=== PATIENT | female | born 1955 | race Caucasian/White ===

== ENCOUNTER → 2018-01-01 | Outpatient (CLI) | payer BC, OTHER ==
[~2018-01-01] MED LIST: ASPI325T17 PO; CALC1CAP8 PO; CALICUM; DRON400T PO; LEVO100C2 PO; LEVO100T5 PO; LISI-167 PO; METO50TA82 PO; OMEG1CAP23 PO; OMEG500C; OXYC1TAB7 PO
== END | disposition home or self-care (01) ==
LOC: CFH 10:18
PROVIDERS: ATTEND Internal Medicine Cardiovascular Disease
DX: I08.3 Combined rheumatic disorders of mitral, aortic and tricuspid valves (principal); I48.0 Paroxysmal atrial fibrillation; I10 Essential (primary) hypertension
CPT/HCPCS: C8929

== ENCOUNTER 2020-04-07 10:05 | Inpatient (IN) | payer BC, OTHER ==
[~2020-04-07] VITALS: Ht 162.6 cm; Wt 108.0 kg
--- NOTE | 2020-04-07 10:13 | NUR ---
triage note: EKG done in triage
[2020-04-07 10:51] LABS: BASOPHILS # (AUTO) 0.03 x10^3/uL (0-0.1); BASOPHILS % (AUTO) 1 % (0-1); EOSINOPHILS # (AUTO) 0.17 x10^3/uL (0-0.4); EOSINOPHILS % (AUTO) 3 % (1-7); LYMPHOCYTES # (AUTO) 1.15 x10^3/uL (1-3.4); LYMPHOCYTES % (AUTO) 19 % (22-44); MD NO; MEAN CORPUSCULAR HEMOGLOBIN 30.2 pg (27.0-34.8); MEAN CORPUSCULAR HGB CONC 33.3 g/dL (32.4-35.8); MEAN CORPUSCULAR VOLUME 90.5 fL (80-100); MEAN PLATELET VOLUME 9.2 fL (7.4-10.4); MONOCYTES # (AUTO) 0.62 x10^3/uL (0.2-0.8); MONOCYTES % (AUTO) 10 % (2-9); NEUTROPHILS # (AUTO) 3.96 x10^3/uL (1.8-6.8); NEUTROPHILS % (AUTO) 67 % (42-75); PLATELET COUNT 214 x10^3/uL (130-400); RED BLOOD COUNT 5.35 x10^6/uL (3.82-5.3); RED CELL DISTRIBUTION WIDTH 15.5 % (9.6-15.2)
[2020-04-07 11:02] LABS: INTERNATIONAL NORMALIZED RATIO 1.07 (0.93-1.1); PROTHROMBIN TIME 11.4 Seconds (9.6-11.5)
[2020-04-07 11:04] LABS: ALANINE AMINOTRANSFERASE 57 U/L (12-78); ALBUMIN 3.4 g/dL (3.4-5.0); ANION GAP 9 mmol/L (5-15); CALCIUM 8.7 mg/dL (8.5-10.1); CHLORIDE 109 mmol/L (98-107); CREATININE 0.97 mg/dL (0.55-1.02)
[2020-04-07 11:09] LABS: ALKALINE PHOSPHATASE 87 U/L (45-117); TOTAL PROTEIN 7.5 g/dL (6.4-8.2); TROPONIN I < 0.015 ng/mL (0.000-0.045)
[2020-04-07] MEDS ORDERED: CEFTRIAXONE PMX 1GM/50ML 50 ML ONE (11:29)
[2020-04-07] MEDS ORDERED: CEFTRIAXONE PMX 1GM/50ML 50 ML IVPB ONE (11:30)
--- NOTE | 2020-04-07 11:43 | NUR ---
IV ESTABLISHED AND IV ABX STARTED AFTER BLOOD CULTURES DRAWN. MED REC UPDATED
[2020-04-07] MEDS ORDERED: APIX5TAB PO (11:46)
--- NOTE | 2020-04-07 12:27 | NUR ---
CHANGE OF ADMIT STATUS TO COVID RULE OUT FLOOR
[2020-04-07] MEDS ORDERED: ACETAMINOPHEN 325 MG TABLET PO PRN (12:30)
[2020-04-07] MEDS ORDERED: GUAIFENESIN/DM 200-20MG, 10ML UDC PO PRN (12:30)
[2020-04-07] MEDS ORDERED: MELATONIN 5 MG TABLET PO PRN (12:30)
[2020-04-07] MEDS ORDERED: ONDANSETRON 2MG/ML, 2ML IVPush PRN (12:30)
[2020-04-07] MEDS ORDERED: DILTIAZEM 5 MG/ML, 5ML IVPush PRN (13:00)
[2020-04-07 13:05] LABS: TROPONIN I < 0.015 ng/mL (0.000-0.045)
--- NOTE | 2020-04-07 13:13 | NUR ---
REPORT TO FELICIANO ROSARIO
--- NOTE | 2020-04-07 13:13 | NUR ---
COVID SWAB DONE AND WALKED TO LAB
--- NOTE | 2020-04-07 14:06 | NUR ---
REPORT FROM MARLENE DANIELLE
[2020-04-07 14:11] VITALS: BP 124/58
[2020-04-07] MEDS: SODIUM CHLORIDE 0.9% 1,000 ML IV SCH ×2 (14:29→21:34)
[2020-04-07 18:56] LABS: TROPONIN I < 0.015 ng/mL (0.000-0.045)
[2020-04-07 19:38] VITALS: BP 108/53
[2020-04-07] MEDS: METOPROLOL TARTRATE 50 MG TAB PO SCH (21:33)
[2020-04-07] MEDS: DOXYCYCLINE 100MG TABLET PO SCH (21:33)
[2020-04-07] MEDS: APIXABAN 5 MG TABLET PO SCH (21:33)
[2020-04-07] MEDS: DRONEDARONE 400MG TABLET PO SCH (21:34)
[2020-04-07] MEDS: CEFTRIAXONE PMX 1GM/50ML 50 ML IV SCH (23:07)
[2020-04-08 00:01] VITALS: BP 115/62
[2020-04-08 05:11] VITALS: BP 108/62
[2020-04-08 05:43] LABS: BASOPHILS # (AUTO) 0.13 x10^3/uL (0-0.1); BASOPHILS % (AUTO) 2 % (0-1); EOSINOPHILS # (AUTO) 0.17 x10^3/uL (0-0.4); EOSINOPHILS % (AUTO) 3 % (1-7); LYMPHOCYTES # (AUTO) 1.44 x10^3/uL (1-3.4); LYMPHOCYTES % (AUTO) 23 % (22-44); MD NO; MEAN CORPUSCULAR VOLUME 91.1 fL (80-100); MONOCYTES # (AUTO) 0.56 x10^3/uL (0.2-0.8); MONOCYTES % (AUTO) 9 % (2-9); NEUTROPHILS # (AUTO) 3.94 x10^3/uL (1.8-6.8); NEUTROPHILS % (AUTO) 63 % (42-75); PLATELET COUNT 189 x10^3/uL (130-400); RED BLOOD COUNT 4.72 x10^6/uL (3.82-5.3); RED CELL DISTRIBUTION WIDTH 15.8 % (9.6-15.2)
[2020-04-08] MEDS: SODIUM CHLORIDE 0.9% 1,000 ML IV SCH (05:44)
[2020-04-08 05:56] LABS: ALBUMIN 2.9 g/dL (3.4-5.0); ANION GAP 8 mmol/L (5-15); CALCIUM 8.1 mg/dL (8.5-10.1); CHLORIDE 112 mmol/L (98-107)
[2020-04-08 06:08] LABS: ALANINE AMINOTRANSFERASE 48 U/L (12-78); ALKALINE PHOSPHATASE 72 U/L (45-117); BILIRUBIN,TOTAL 0.7 mg/dL (0.2-1.0); CHOL/HDL RATIO 1.9; CHOLESTEROL, TOTAL 75 mg/dL (140-239); HDL CHOL % 52 % (28-40); HDL CHOLESTEROL (DIRECT) 39 mg/dL (40-60); LDL CHOLESTEROL,CALCULATED 26 mg/dL (54-169); LDL/HDL RATIO 0.7 (0.5-3.0); TOTAL PROTEIN 6.6 g/dL (6.4-8.2); TRIGLYCERIDES 48 mg/dL (50-200); VLDL CHOLESTEROL 10 mg/dL (0-25)
[2020-04-08 08:00] VITALS: BP 123/78
[2020-04-08] MEDS: DOXYCYCLINE 100MG TABLET PO SCH ×2 (08:49→21:02)
[2020-04-08] MEDS: LEVOTHYROXINE 100 MCG TABLET PO SCH (08:49)
[2020-04-08] MEDS: DRONEDARONE 400MG TABLET PO SCH ×2 (08:49→21:02)
[2020-04-08] MEDS: LISINOPRIL 10 MG TABLET PO SCH (08:49)
[2020-04-08] MEDS: METOPROLOL TARTRATE 50 MG TAB PO SCH ×2 (08:49→21:03)
[2020-04-08] MEDS: APIXABAN 5 MG TABLET PO SCH ×2 (09:00→21:13)
[2020-04-08 11:55] VITALS: BP 133/66
[2020-04-08 21:14] VITALS: BP 136/69
[2020-04-08] MEDS: CEFTRIAXONE PMX 1GM/50ML 50 ML IV SCH (23:29)
[2020-04-09 02:18] VITALS: BP 117/66
[2020-04-09 08:44] VITALS: BP 122/49
[2020-04-09] MEDS: METOPROLOL TARTRATE 50 MG TAB PO SCH (09:55)
[2020-04-09] MEDS: DOXYCYCLINE 100MG TABLET PO SCH (09:56)
[2020-04-09] MEDS: DRONEDARONE 400MG TABLET PO SCH (09:56)
[2020-04-09] MEDS: LEVOTHYROXINE 100 MCG TABLET PO SCH (09:56)
[2020-04-09] MEDS: APIXABAN 5 MG TABLET PO SCH (09:56)
[2020-04-09] MEDS: LISINOPRIL 10 MG TABLET PO SCH (09:56)
[2020-04-09] MEDS ORDERED: DOXY100T PO (09:57)
[2020-04-09] MEDS ORDERED: CEFD300C37 PO (09:57)
[2020-04-09 12:08] VITALS: BP 125/54
== END 2020-04-09 15:00 | disposition home or self-care (01) | DRG 194 ==
LOC: ED 10:53 → EDIP 11:02 → 4NE 14:00 → ICU 04-08 05:00
PROVIDERS: ADMIT Internal Medicine; ATTEND Internal Medicine
DX: J15.9 Unspecified bacterial pneumonia (principal); D68.69 Other thrombophilia; E03.9 Hypothyroidism, unspecified; I10 Essential (primary) hypertension; I48.91 Unspecified atrial fibrillation
CPT/HCPCS: 36415; 71045; 80053; 80061; 83605; 84443; 84484; 85025; 85610; 87040; 87081; 93005; 93308; 93321; 93325; 96374; G0378; J0696; J7030; U0001-CS

== ENCOUNTER → 2020-05-15 | Outpatient (CLI) | payer BC, OTHER ==
[~2020-05-15] MED LIST changes: +APIX5TAB PO; +CEFD300C37 PO; +DOXY100T PO
== END | disposition home or self-care (01) ==
LOC: CFH 09:42
PROVIDERS: ATTEND Family Medicine
DX: I51.7 Cardiomegaly (principal); J18.9 Pneumonia, unspecified organism
CPT/HCPCS: 71046

== ENCOUNTER 2020-06-12 10:14 | Outpatient (CLI) | payer BC, OTHER, MEDICARE | END 2020-06-12 23:59 | disposition home or self-care (01) | LOC: CFH 10:14 | PROVIDERS: ATTEND Internal Medicine Cardiovascular Disease | DX: I11.9 Hypertensive heart disease without heart failure (principal); I48.0 Paroxysmal atrial fibrillation | CPT/HCPCS: 93306 ==

== ENCOUNTER → 2020-06-19 | Outpatient (CLI) | payer BC, OTHER, MEDICARE ==
[2020-06-19 12:48] LABS: BASOPHILS # (AUTO) 0.03 x10^3/uL (0-0.1); BASOPHILS % (AUTO) 1 % (0-1); EOSINOPHILS # (AUTO) 0.25 x10^3/uL (0-0.4); EOSINOPHILS % (AUTO) 5 % (1-7); LYMPHOCYTES # (AUTO) 1.12 x10^3/uL (1-3.4); LYMPHOCYTES % (AUTO) 23 % (22-44); MD NO; MEAN CORPUSCULAR HEMOGLOBIN 29.7 pg (27.0-34.8); MEAN CORPUSCULAR HGB CONC 32.8 g/dL (32.4-35.8); MEAN CORPUSCULAR VOLUME 90.6 fL (80-100); MEAN PLATELET VOLUME 8.7 fL (7.4-10.4); MONOCYTES # (AUTO) 0.37 x10^3/uL (0.2-0.8); MONOCYTES % (AUTO) 8 % (2-9); NEUTROPHILS # (AUTO) 3.04 x10^3/uL (1.8-6.8); NEUTROPHILS % (AUTO) 63 % (42-75); PLATELET COUNT 192 x10^3/uL (130-400); RED BLOOD COUNT 4.79 x10^6/uL (3.82-5.3); RED CELL DISTRIBUTION WIDTH 15.5 % (9.6-15.2)
[2020-06-19 13:14] LABS: CHLORIDE 111 mmol/L (98-107)
[2020-06-19 13:37] LABS: ALANINE AMINOTRANSFERASE 57 U/L (12-78); ALBUMIN 3.5 g/dL (3.4-5.0); ALKALINE PHOSPHATASE 81 U/L (45-117); ANION GAP 5 mmol/L (5-15); BILIRUBIN,TOTAL 0.9 mg/dL (0.2-1.0); CALCIUM 9.1 mg/dL (8.5-10.1); CHOL/HDL RATIO 1.7; CHOLESTEROL, TOTAL 88 mg/dL (140-239); CREATININE 0.92 mg/dL (0.55-1.02); HDL CHOL % 60 % (28-40); HDL CHOLESTEROL (DIRECT) 53 mg/dL (40-60); LDL CHOLESTEROL,CALCULATED 28 mg/dL (54-169); LDL/HDL RATIO 0.5 (0.5-3.0); T4 (THYROXINE) 14.1 mcg/dL (4.8-13.9); TOTAL PROTEIN 7.3 g/dL (6.4-8.2); TRIGLYCERIDES 35 mg/dL (50-200); VLDL CHOLESTEROL 7 mg/dL (0-25)
== END | disposition home or self-care (01) ==
LOC: CFH 08:55
PROVIDERS: ATTEND Family Medicine
DX: I10 Essential (primary) hypertension (principal); I48.0 Paroxysmal atrial fibrillation
CPT/HCPCS: 36415; 80053; 80061; 84436; 84481; 85025

== ENCOUNTER → 2020-07-27 | Outpatient (CLI) | payer BC, MEDICARE, OTHER | END | disposition home or self-care (01) | LOC: RAD 14:12 | PROVIDERS: ATTEND Family Medicine | DX: R05 Cough (principal); I51.7 Cardiomegaly | CPT/HCPCS: 71046 ==

== ENCOUNTER 2020-09-01 07:55 | Inpatient (IN) | payer BC, MEDICARE, OTHER ==
[~2020-09-01] VITALS: Ht 162.6 cm; Wt 89.0 kg
--- NOTE | 2020-09-01 08:14 | NUR ---
EKG IN TRIAGE
[2020-09-01] MEDS ORDERED: ASPIRIN 81 MG TABLET CHEW ONE (08:51)
[2020-09-01] MEDS ORDERED: DILTIAZEM 5 MG/ML, 5ML ONE (08:52)
[2020-09-01] MEDS ORDERED: ASPIRIN 81 MG TABLET CHEW PO ONE (09:00)
[2020-09-01] MEDS ORDERED: DILTIAZEM 5 MG/ML, 5ML IVPush ONE (09:00)
[2020-09-01] MEDS ORDERED: SODIUM CHLORIDE FLUSH 10ML SYR IVF ONE (09:00)
[2020-09-01 09:10] LABS: BASOPHILS % (AUTO) 1 % (0-1); EOSINOPHILS % (AUTO) 4 % (1-7); LYMPHOCYTES % (AUTO) 18 % (22-44); MEAN CORPUSCULAR HEMOGLOBIN 28.9 pg (27.0-34.8); MEAN CORPUSCULAR HGB CONC 33.5 g/dL (32.4-35.8); MEAN PLATELET VOLUME 8.7 fL (7.4-10.4); MONOCYTES % (AUTO) 8 % (2-9); NEUTROPHILS % (AUTO) 69 % (42-75); PLATELET COUNT 277 x10^3/uL (130-400); RED BLOOD COUNT 4.91 x10^6/uL (3.82-5.3); RED CELL DISTRIBUTION WIDTH 15.7 % (9.6-15.2)
--- NOTE | 2020-09-01 09:10 | NUR ---
lab to re-draw patient
[2020-09-01 09:11] LABS: MD NO
[2020-09-01 09:52] LABS: ALBUMIN 3.4 g/dL (3.4-5.0); ANION GAP 3 mmol/L (5-15); CALCIUM 8.6 mg/dL (8.5-10.1); CHLORIDE 112 mmol/L (98-107); CREATININE 0.94 mg/dL (0.55-1.02)
[2020-09-01 09:56] LABS: TROPONIN I < 0.015 ng/mL (0.000-0.045)
--- NOTE | 2020-09-01 09:57 | NUR ---
PT WITH C/O ELEVATED BP, HAD TAKEN READING SEVERAL TIMES AT HOME PER HER REPORT "IT WAS IN TRIPPLE DIGITS, I CANT AFFORD TO HAVE A STROKE" PT WITH NO OTHER COMPLAINTS AT THIS TIME, DENIES CP/SOB. PT DOES HAVE DRY COUGH, STATES HAD NEGATIVE COVID TEST 1 WEEK AGO. PT TO BP, CONT PULSE OX, CARD MONITOR. PT AFIB RATES 100-130. PIV INITIATED PT MEDICATED PER DEC
--- NOTE | 2020-09-01 10:39 | NUR ---
dr leiva spoke with dr mckinley
[2020-09-01] MEDS ORDERED: ETOMIDATE 20 MG/10 ML ONE (11:17)
[2020-09-01] MEDS ORDERED: ETOMIDATE 20 MG/10 ML IVPush ONE (11:30)
--- NOTE | 2020-09-01 11:48 | NUR ---
BEDSIDE CARDIOVERSION COMPLETED AT BEDSIDE. SEE PROCEDURAL SEDATION PAPER CHARTING. VSS DURING PROCEDURE AND POST PROCEDURE, PT TOLERATED WELL. DR STEWART NOW IN TO EVAL PT. PT AWAKE AND ALERT. PT REMAINS IN AFIB 100-115 HR.
[2020-09-01] MEDS ORDERED: FUROSEMIDE 40 MG/4 ML IV ONE (12:00)
[2020-09-01] MEDS ORDERED: LISINOPRIL 10 MG TABLET PO ONE (12:00)
[2020-09-01] MEDS ORDERED: POTASSIUM CHLORIDE 20 MEQ TAB.ER.PRT PO ONE (12:00)
[2020-09-01] MEDS ORDERED: FUROSEMIDE 40 MG/4 ML ONE (12:43)
[2020-09-01] MEDS ORDERED: LISINOPRIL 10 MG TABLET ONE (12:43)
[2020-09-01] MEDS ORDERED: POTASSIUM CHLORIDE 20 MEQ TAB.ER.PRT ONE (12:43)
--- NOTE | 2020-09-01 12:48 | NUR ---
BREAK RN: PT MEDICATED PER EMAR.
[2020-09-01] MEDS ORDERED: ACETAMINOPHEN 325 MG TABLET PO PRN (13:00)
[2020-09-01] MEDS ORDERED: DOCUSATE 100 MG CAPSULE PO PRN (13:00)
[2020-09-01] MEDS ORDERED: ENALAPRILAT 1.25 MG/ML, 2ML IVPush PRN (13:00)
[2020-09-01] MEDS ORDERED: LABETALOL 5MG/ML, 20ML IVPush PRN (13:00)
[2020-09-01] MEDS ORDERED: POLYETHYLENE GLYCOL 17 GM PACKET PO PRN (13:00)
[2020-09-01] MEDS ORDERED: BISACODYL 10 MG SUPP PR PRN (13:00)
[2020-09-01] MEDS ORDERED: ONDANSETRON 2MG/ML, 2ML IVPush PRN (13:00)
[2020-09-01] MEDS ORDERED: ONDANSETRON ODT 4 MG PO PRN (13:00)
--- NOTE | 2020-09-01 13:20 | NUR ---
REPORT GIVEN TO RECMELECIO ROSARIO
[2020-09-01 13:50] VITALS: BP 136/72
[2020-09-01] MEDS ORDERED: FUROSEMIDE 40 MG/4 ML IV SCH (17:00)
[2020-09-01 19:25] VITALS: BP 132/80
[2020-09-01] MEDS: APIXABAN 5 MG TABLET PO SCH (20:10)
[2020-09-01] MEDS: DRONEDARONE 400MG TABLET PO SCH (20:11)
[2020-09-01] MEDS ORDERED: METOPROLOL TARTRATE 50 MG TAB PO SCH (21:00)
[2020-09-01] MEDS: DILTIAZEM 5 MG/ML, 5ML IVPush PRN (21:56)
[2020-09-02 01:22] VITALS: BP 136/80
[2020-09-02 05:42] LABS: BASOPHILS % (AUTO) 1 % (0-1); EOSINOPHILS % (AUTO) 3 % (1-7); LYMPHOCYTES % (AUTO) 18 % (22-44); MEAN CORPUSCULAR HEMOGLOBIN 28.9 pg (27.0-34.8); MEAN PLATELET VOLUME 8.6 fL (7.4-10.4); MONOCYTES % (AUTO) 9 % (2-9); NEUTROPHILS % (AUTO) 70 % (42-75); PLATELET COUNT 287 x10^3/uL (130-400); RED BLOOD COUNT 5.23 x10^6/uL (3.82-5.3); RED CELL DISTRIBUTION WIDTH 15.5 % (9.6-15.2)
[2020-09-02 05:58] LABS: MD NO
[2020-09-02] MEDS ORDERED: METOPROLOL SUCCINATE 50 MG TAB.ER.24H PO SCH (06:00)
[2020-09-02 06:50] LABS: ANION GAP 6 mmol/L (5-15); CALCIUM 8.8 mg/dL (8.5-10.1); CHLORIDE 107 mmol/L (98-107); CREATININE 0.91 mg/dL (0.55-1.02)
[2020-09-02 07:12] VITALS: BP 120/73
[2020-09-02] MEDS: LISINOPRIL 40 MG TABLET PO SCH (07:55)
[2020-09-02] MEDS: DRONEDARONE 400MG TABLET PO SCH (07:55)
[2020-09-02] MEDS: APIXABAN 5 MG TABLET PO SCH ×2 (07:55→21:06)
[2020-09-02] MEDS: LEVOTHYROXINE 100 MCG TABLET PO SCH (07:55)
[2020-09-02] MEDS: FUROSEMIDE 40 MG/4 ML IV SCH ×2 (07:56→16:55)
[2020-09-02] MEDS: DILTIAZEM 5 MG/ML, 5ML IVPush PRN ×2 (10:24→17:32)
[2020-09-02 13:10] VITALS: BP 134/73
[2020-09-02] MEDS ORDERED: PROPOFOL 10 MG/ML, 20ML ONE (15:26)
[2020-09-02 18:39] VITALS: BP 133/70
[2020-09-02 21:03] VITALS: BP 125/90
[2020-09-02] MEDS: METOPROLOL SUCCINATE 50 MG TAB.ER.24H PO SCH (21:06)
[2020-09-03 02:01] VITALS: BP 129/72
[2020-09-03 07:32] VITALS: BP 144/78
[2020-09-03] MEDS: LEVOTHYROXINE 100 MCG TABLET PO SCH (08:39)
[2020-09-03] MEDS: LISINOPRIL 40 MG TABLET PO SCH (08:39)
[2020-09-03] MEDS: METOPROLOL SUCCINATE 50 MG TAB.ER.24H PO SCH (08:39)
[2020-09-03] MEDS: APIXABAN 5 MG TABLET PO SCH ×2 (08:39→20:49)
[2020-09-03] MEDS: FUROSEMIDE 40 MG/4 ML IV SCH (08:39)
[2020-09-03] MEDS ORDERED: POTASSIUM CHLORIDE 20 MEQ TAB.ER.PRT PO ONE ×2 (09:00→13:30)
[2020-09-03 10:17] LABS: ANION GAP 6 mmol/L (5-15); CALCIUM 9.1 mg/dL (8.5-10.1); CHLORIDE 108 mmol/L (98-107); CREATININE 1.09 mg/dL (0.55-1.02)
[2020-09-03] MEDS: SPIRONOLACTONE 25 MG TABLET PO SCH (10:18)
[2020-09-03] MEDS: SOTALOL 80MG TABLET PO SCH ×2 (10:18→17:12)
[2020-09-03 12:30] VITALS: BP 147/89
[2020-09-03] MEDS: DILTIAZEM 30 MG TABLET PO SCH ×2 (17:14→23:31)
[2020-09-03 20:56] VITALS: BP 120/80
[2020-09-03 23:29] VITALS: BP 125/80
[2020-09-04 02:02] VITALS: BP 129/74
[2020-09-04 05:47] LABS: ANION GAP 5 mmol/L (5-15); CALCIUM 8.8 mg/dL (8.5-10.1); CHLORIDE 107 mmol/L (98-107); CREATININE 1.17 mg/dL (0.55-1.02)
[2020-09-04 06:10] VITALS: BP 126/86
[2020-09-04] MEDS: SOTALOL 80MG TABLET PO SCH ×2 (06:11→17:08)
[2020-09-04] MEDS: DILTIAZEM 30 MG TABLET PO SCH ×4 (06:11→21:52)
[2020-09-04 07:55] VITALS: BP 110/75
[2020-09-04] MEDS: APIXABAN 5 MG TABLET PO SCH ×2 (08:10→21:52)
[2020-09-04] MEDS: LISINOPRIL 40 MG TABLET PO SCH (08:10)
[2020-09-04] MEDS: LEVOTHYROXINE 100 MCG TABLET PO SCH (08:10)
[2020-09-04] MEDS: SPIRONOLACTONE 25 MG TABLET PO SCH (08:10)
[2020-09-04] MEDS ORDERED: FUROSEMIDE 20 MG TABLET PO SCH (09:00)
[2020-09-04 13:17] VITALS: BP 131/57
[2020-09-04 20:06] VITALS: BP 127/71
[2020-09-05 01:29] VITALS: BP 106/68
[2020-09-05] MEDS: DILTIAZEM 30 MG TABLET PO SCH ×2 (05:19→11:00)
[2020-09-05] MEDS: SOTALOL 80MG TABLET PO SCH (06:22)
[2020-09-05 07:15] VITALS: BP 137/81
[2020-09-05] MEDS: SPIRONOLACTONE 25 MG TABLET PO SCH (09:04)
[2020-09-05] MEDS: APIXABAN 5 MG TABLET PO SCH (09:05)
[2020-09-05] MEDS: LISINOPRIL 40 MG TABLET PO SCH (09:05)
[2020-09-05] MEDS: LEVOTHYROXINE 100 MCG TABLET PO SCH (09:06)
[2020-09-05] MEDS ORDERED: LISI40TA PO (10:13)
[2020-09-05] MEDS ORDERED: SPIR25TA PO (10:13)
[2020-09-05] MEDS ORDERED: SOTA80TA18 PO (10:13)
== END 2020-09-05 13:50 | disposition home or self-care (01) | DRG 308 ==
LOC: ED 10:16 → 4EST 14:06 → 5SO 09-02 18:34 → DCLOUNGE 09-05 13:41
PROVIDERS: ADMIT Hospitalist; ATTEND Hospitalist
PROC: 5A2204Z Restoration of Cardiac Rhythm, Single (ICD-10-PCS; principal; 2020-09-02 16:00)
DX: I48.0 Paroxysmal atrial fibrillation (principal); I50.33 Acute on chronic diastolic (congestive) heart failure; D68.69 Other thrombophilia; B34.9 Viral infection, unspecified; I11.0 Hypertensive heart disease with heart failure; I48.92 Unspecified atrial flutter; E03.9 Hypothyroidism, unspecified; E66.01 Morbid (severe) obesity due to excess calories; G47.33 Obstructive sleep apnea (adult) (pediatric); I49.3 Ventricular premature depolarization; Z20.828 Contact with and (suspected) exposure to other viral communicable diseases; R53.83 Other fatigue; Z68.33 Body mass index [BMI] 33.0-33.9, adult; Z82.49 Family history of ischemic heart disease and other diseases of the circulatory system; Z87.891 Personal history of nicotine dependence; Z98.51 Tubal ligation status
CPT/HCPCS: 36415; 71045; 80048; 82040; 83735; 83880; 84436; 84443; 84484; 85025; 87635; 92960; 93005; 96374; 96375; 99285; G0378; J1940; J2704; U0003

== ENCOUNTER 2020-09-12 12:21 | Inpatient (IN) | payer BC, MEDICARE, OTHER ==
[~2020-09-12] VITALS: Ht 162.6 cm; Wt 102.5 kg
[~2020-09-12 12:21] MED LIST changes: +LISI40TA PO; +SOTA80TA18 PO; +SPIR25TA PO
--- NOTE | 2020-09-12 12:46 | NUR ---
CURB SETTER HELPER: PT FROM HOLDING ON WALL WITH EMS TO ROOM 14 AT THIS TIME.
[2020-09-12] MEDS ORDERED: LABETALOL 5MG/ML, 20ML IVPush ONE ×2 (13:00→15:00)
[2020-09-12 13:14] LABS: BASOPHILS % (AUTO) 1 % (0-1); EOSINOPHILS % (AUTO) 3 % (1-7); LYMPHOCYTES % (AUTO) 18 % (22-44); MEAN CORPUSCULAR HEMOGLOBIN 29.5 pg (27.0-34.8); MEAN CORPUSCULAR HGB CONC 34.1 g/dL (32.4-35.8); MEAN PLATELET VOLUME 8.8 fL (7.4-10.4); MONOCYTES % (AUTO) 9 % (2-9); NEUTROPHILS % (AUTO) 70 % (42-75); PLATELET COUNT 203 x10^3/uL (130-400); RED CELL DISTRIBUTION WIDTH 15.9 % (9.6-15.2)
[2020-09-12 13:15] LABS: MD NO
--- NOTE | 2020-09-12 13:16 | NUR ---
PT IN BED RESTING, NO CHANGE
[2020-09-12 13:25] LABS: ANION GAP 6 mmol/L (5-15); CALCIUM 8.9 mg/dL (8.5-10.1); CHLORIDE 112 mmol/L (98-107); CREATININE 0.82 mg/dL (0.55-1.02)
[2020-09-12 13:26] LABS: ALANINE AMINOTRANSFERASE 49 U/L (12-78); ALBUMIN 3.4 g/dL (3.4-5.0)
[2020-09-12 13:30] LABS: ALKALINE PHOSPHATASE 88 U/L (45-117); BILIRUBIN,TOTAL 0.9 mg/dL (0.2-1.0); TOTAL PROTEIN 7.2 g/dL (6.4-8.2); TROPONIN I < 0.015 ng/mL (0.000-0.045)
[2020-09-12] MEDS ORDERED: APIX5TAB PO (13:32)
--- NOTE | 2020-09-12 14:33 | NUR ---
PT UP TO BR, NO DISTRESS, NO CHANGE
[2020-09-12] MEDS ORDERED: DILTIAZEM 125 MG in SODIUM CHLORIDE 0.9% 100 ML IV SCH ×2 (15:00→17:30)
--- NOTE | 2020-09-12 16:00 | NUR ---
PT IN BED, NO DISTRESS, HR @ 82
[2020-09-12] MEDS ORDERED: ONDANSETRON 2MG/ML, 2ML IVPush PRN (17:30)
[2020-09-12] MEDS ORDERED: ONDANSETRON ODT 4 MG PO PRN (17:30)
[2020-09-12 18:32] VITALS: BP 139/86
[2020-09-12 19:49] LABS: TROPONIN I < 0.015 ng/mL (0.000-0.045)
[2020-09-12 20:20] VITALS: BP 142/71
[2020-09-12] MEDS: APIXABAN 5 MG TABLET PO SCH (20:24)
[2020-09-12] MEDS: SOTALOL 80MG TABLET PO SCH (20:24)
[2020-09-13 01:20] VITALS: BP 116/75
[2020-09-13 02:06] LABS: TROPONIN I < 0.015 ng/mL (0.000-0.045)
[2020-09-13 05:37] LABS: BASOPHILS % (AUTO) 1 % (0-1); EOSINOPHILS % (AUTO) 5 % (1-7); LYMPHOCYTES % (AUTO) 23 % (22-44); MEAN CORPUSCULAR HEMOGLOBIN 29.4 pg (27.0-34.8); MEAN CORPUSCULAR HGB CONC 33.9 g/dL (32.4-35.8); MEAN PLATELET VOLUME 8.8 fL (7.4-10.4); MONOCYTES % (AUTO) 10 % (2-9); NEUTROPHILS % (AUTO) 62 % (42-75); PLATELET COUNT 171 x10^3/uL (130-400); RED BLOOD COUNT 4.95 x10^6/uL (3.82-5.3); RED CELL DISTRIBUTION WIDTH 15.9 % (9.6-15.2)
[2020-09-13 05:47] LABS: CHLORIDE 112 mmol/L (98-107); MD NO
[2020-09-13 05:57] LABS: ALANINE AMINOTRANSFERASE 44 U/L (12-78); ALBUMIN 3.2 g/dL (3.4-5.0); ALKALINE PHOSPHATASE 80 U/L (45-117); ANION GAP 7 mmol/L (5-15); BILIRUBIN,TOTAL 0.7 mg/dL (0.2-1.0); CALCIUM 9.1 mg/dL (8.5-10.1); CREATININE 0.99 mg/dL (0.55-1.02); TOTAL PROTEIN 6.8 g/dL (6.4-8.2)
[2020-09-13 06:30] VITALS: BP 116/77
[2020-09-13] MEDS: LEVOTHYROXINE 100 MCG TABLET PO SCH (06:32)
[2020-09-13] MEDS: SOTALOL 80MG TABLET PO SCH ×2 (06:32→18:00)
[2020-09-13 07:32] VITALS: BP 119/79
[2020-09-13] MEDS: SPIRONOLACTONE 25 MG TABLET PO SCH (12:17)
[2020-09-13] MEDS: LISINOPRIL 40 MG TABLET PO SCH (12:17)
[2020-09-13] MEDS: APIXABAN 5 MG TABLET PO SCH ×2 (12:17→20:59)
[2020-09-13] MEDS: DILTIAZEM 30 MG TABLET PO SCH ×3 (12:17→20:59)
[2020-09-13 13:34] VITALS: BP 122/78
[2020-09-13] MEDS ORDERED: DILTIAZEM 125 MG in SODIUM CHLORIDE 0.9% 100 ML IV SCH (15:00)
[2020-09-13 20:00] VITALS: BP 130/90
[2020-09-14 01:25] VITALS: BP 124/71
[2020-09-14] MEDS: DILTIAZEM 30 MG TABLET PO SCH (05:29)
[2020-09-14] MEDS: LEVOTHYROXINE 100 MCG TABLET PO SCH (05:30)
[2020-09-14] MEDS: SOTALOL 80MG TABLET PO SCH (05:30)
[2020-09-14 05:43] LABS: BASOPHILS % (AUTO) 1 % (0-1); EOSINOPHILS % (AUTO) 6 % (1-7); LYMPHOCYTES % (AUTO) 25 % (22-44); MEAN CORPUSCULAR HEMOGLOBIN 29.5 pg (27.0-34.8); MONOCYTES % (AUTO) 10 % (2-9); NEUTROPHILS % (AUTO) 59 % (42-75); PLATELET COUNT 163 x10^3/uL (130-400); RED BLOOD COUNT 5.31 x10^6/uL (3.82-5.3); RED CELL DISTRIBUTION WIDTH 15.9 % (9.6-15.2)
[2020-09-14 05:46] LABS: ANION GAP 3 mmol/L (5-15); CALCIUM 8.7 mg/dL (8.5-10.1); CHLORIDE 108 mmol/L (98-107); CREATININE 0.81 mg/dL (0.55-1.02)
[2020-09-14 06:58] LABS: MD SCAN
[2020-09-14] MEDS: SPIRONOLACTONE 25 MG TABLET PO SCH (08:25)
[2020-09-14] MEDS: LISINOPRIL 40 MG TABLET PO SCH (08:25)
[2020-09-14] MEDS: APIXABAN 5 MG TABLET PO SCH ×2 (08:25→21:22)
[2020-09-14 09:03] VITALS: BP 113/76
[2020-09-14] MEDS: DILTIAZEM 120 MG CAP.ER.24H PO SCH (14:57)
[2020-09-14] MEDS: METOPROLOL TARTRATE 25 MG TAB PO SCH (19:00)
[2020-09-14 20:00] VITALS: BP 141/73
[2020-09-15 02:11] VITALS: BP 122/85
[2020-09-15 05:59] VITALS: BP 135/77
[2020-09-15] MEDS: LEVOTHYROXINE 100 MCG TABLET PO SCH (06:01)
[2020-09-15] MEDS: METOPROLOL TARTRATE 25 MG TAB PO SCH (06:01)
[2020-09-15 08:00] VITALS: BP 111/76
[2020-09-15] MEDS: LISINOPRIL 40 MG TABLET PO SCH (11:10)
[2020-09-15] MEDS: APIXABAN 5 MG TABLET PO SCH (11:10)
[2020-09-15] MEDS: DILTIAZEM 120 MG CAP.ER.24H PO SCH (11:10)
[2020-09-15] MEDS: SPIRONOLACTONE 25 MG TABLET PO SCH (11:10)
[2020-09-15] MEDS ORDERED: METO25TA35 PO (11:28)
[2020-09-15] MEDS ORDERED: DILT120C80 PO (11:28)
== END 2020-09-15 14:20 | disposition home or self-care (01) | DRG 309 ==
LOC: ED 13:07 → EDIP 15:30 → 5SO 18:22 → DCLOUNGE 09-15 14:15
PROVIDERS: ADMIT Family Medicine; ATTEND Family Medicine
PROC: 5A2204Z Restoration of Cardiac Rhythm, Single (ICD-10-PCS; principal; 2020-09-14)
DX: I48.0 Paroxysmal atrial fibrillation (principal); D68.69 Other thrombophilia; E46 Unspecified protein-calorie malnutrition; I50.32 Chronic diastolic (congestive) heart failure; J98.11 Atelectasis; E66.9 Obesity, unspecified; E78.5 Hyperlipidemia, unspecified; G47.33 Obstructive sleep apnea (adult) (pediatric); I48.92 Unspecified atrial flutter; Z79.01 Long term (current) use of anticoagulants; Z68.38 Body mass index [BMI] 38.0-38.9, adult; Z82.49 Family history of ischemic heart disease and other diseases of the circulatory system; Z98.51 Tubal ligation status
CPT/HCPCS: 36415; 71045; 80048; 80053; 83735; 83880; 84484; 85025; 92960; 93005; G0378; Q0162

== ENCOUNTER 2020-10-26 13:13 | Outpatient (CLI) | payer BC, MEDICARE, OTHER ==
[~2020-10-26 13:13] MED LIST changes: -OMNIPAQUE 350 MG/ML, 150 ML BOTTLE ONE
== END 2020-10-26 23:59 | disposition home or self-care (01) ==
LOC: OUT 13:13
PROVIDERS: ATTEND Family Medicine
DX: Z20.828 Contact with and (suspected) exposure to other viral communicable diseases (principal)
CPT/HCPCS: 87635

== ENCOUNTER → 2020-10-26 | Outpatient (CLI) | payer BC, MEDICARE, OTHER ==
[~2020-10-26] MED LIST changes: +DILT120C80 PO; +METO25TA35 PO; +OMNIPAQUE 350 MG/ML, 150 ML BOTTLE ONE
== END | disposition home or self-care (01) ==
LOC: CFH 13:37
PROVIDERS: ATTEND Internal Medicine Cardiovascular Disease
DX: I48.0 Paroxysmal atrial fibrillation (principal); I51.7 Cardiomegaly
CPT/HCPCS: 71046; 75572; Q9967

== ENCOUNTER 2020-10-30 10:03 | Observation (INO) | payer BC, MEDICARE, OTHER ==
[~2020-10-30] VITALS: Ht 162.6 cm; Wt 96.8 kg
[2020-10-30] MEDS ORDERED: SODIUM CHLORIDE 0.9% 1,000 ML IV SCH ×2 (10:30)
[2020-10-30 10:31] VITALS: BP 145/66
[2020-10-30] MEDS ORDERED: LISI-170 PO (10:38)
[2020-10-30] MEDS ORDERED: METO25TA91 PO (10:38)
[2020-10-30] MEDS ORDERED: LIDOCAINE 2%, 20ML ONE (12:56)
[2020-10-30] MEDS ORDERED: ROCURONIUM 10MG/ML,5ML ONE (13:14)
[2020-10-30] MEDS ORDERED: PROPOFOL 10 MG/ML, 20ML ONE (13:14)
[2020-10-30] MEDS ORDERED: MIDAZOLAM 1 MG/ML, 2ML ONE (13:20)
[2020-10-30] MEDS ORDERED: FENTANYL PF 250 MCG/5ML ONE (13:21)
[2020-10-30] MEDS ORDERED: HEPARIN 1,000 UNITS/ML, 10ML ONE (15:26)
[2020-10-30] MEDS ORDERED: APIXABAN 5 MG TABLET ONE (17:29)
[2020-10-30] MEDS ORDERED: ONDANSETRON 2MG/ML, 2ML ONE ×2 (17:35)
[2020-10-30] MEDS ORDERED: DIPHENHYDRAMINE 50 MG/ML, 1ML IVPush PRN (18:00)
[2020-10-30] MEDS ORDERED: HYDROmorphone 1 MG/ML, 1ML INJ IVPush PRN (18:00)
[2020-10-30] MEDS ORDERED: hydrALAzine 20 MG/ML, 1ML IV PRN (18:00)
[2020-10-30] MEDS ORDERED: DIAZEPAM 5 MG/ML, 2ML IVPush PRN (18:00)
[2020-10-30] MEDS ORDERED: ACETAMINOPHEN 325 MG TABLET PO PRN (18:00)
[2020-10-30] MEDS ORDERED: MIDAZOLAM 1 MG/ML, 2ML IV PRN (18:00)
[2020-10-30] MEDS ORDERED: MEPERIDINE/PF 25MG/0.5ML IVPush PRN (18:00)
[2020-10-30] MEDS ORDERED: OXYcodone 5 MG/5 ML ORAL.SOL UDC PO PRN (18:00)
[2020-10-30] MEDS ORDERED: PROMETHAZINE 25 MG/ML, 1ML IVPush PRN (18:00)
[2020-10-30] MEDS ORDERED: PROMETHAZINE 12.5 MG SUPP PR PRN (18:00)
[2020-10-30] MEDS ORDERED: EPHEDRINE 50 MG/ML, 1ML IVPush PRN (18:00)
[2020-10-30] MEDS ORDERED: LABETALOL 5MG/ML, 20ML IV PRN (18:00)
[2020-10-30] MEDS ORDERED: FENTANYL PF 100 MCG/2ML IV PRN (18:00)
[2020-10-30] MEDS ORDERED: ONDANSETRON 2MG/ML, 2ML IVPush PRN (18:00)
[2020-10-30] MEDS ORDERED: ALBUTEROL SULFATE 2.5 MG/3 ML NPPB PRN (18:00)
[2020-10-30] MEDS ORDERED: ACETAMINOPHEN 650 MG/20.3 ML UDC ONE (18:29)
[2020-10-30] MEDS ORDERED: OXYcodone 5 MG/5 ML ORAL.SOL UDC ONE (18:29)
[2020-10-30] MEDS ORDERED: APIXABAN 5 MG TABLET PO ONE (18:30)
[2020-10-30 18:50] VITALS: BP 101/66
[2020-10-30] MEDS: APIXABAN 5 MG TABLET PO SCH (18:59)
[2020-10-30] MEDS ORDERED: APIXABAN 5 MG TABLET PO SCH (21:00)
[2020-10-30] MEDS: COLCHICINE 0.6 MG CAPSULE PO SCH (21:57)
[2020-10-30] MEDS ORDERED: ACETAMINOPHEN 500 MG TABLET PO PRN (22:00)
[2020-10-31 00:58] VITALS: BP 104/68
[2020-10-31] MEDS ORDERED: LEVOTHYROXINE 100 MCG TABLET PO SCH (06:00)
[2020-10-31] MEDS ORDERED: DRONEDARONE 400MG TABLET PO SCH (08:00)
[2020-10-31] MEDS ORDERED: METOPROLOL SUCCINATE 25 MG TAB.ER.24H PO SCH (09:00)
[2020-10-31] MEDS ORDERED: SPIRONOLACTONE 25 MG TABLET PO SCH (09:00)
[2020-10-31] MEDS ORDERED: LISINOPRIL 20 MG TABLET PO SCH (09:00)
[2020-10-31] MEDS ORDERED: DILTIAZEM 120 MG CAP.ER.24H PO SCH (09:00)
[2020-10-31 09:02] VITALS: BP 121/77
[2020-10-31] MEDS: COLCHICINE 0.6 MG CAPSULE PO SCH (09:28)
[2020-10-31] MEDS: APIXABAN 5 MG TABLET PO SCH (09:30)
[2020-10-31] MEDS ORDERED: COLC0.6C3 PO (09:55)
[2020-10-31] MEDS ORDERED: DRON400T PO (09:55)
== END 2020-10-31 12:17 | disposition home or self-care (01) ==
LOC: CACL 10:03 → EDIP 17:43 → 5SO 17:45 → DCLOUNGE 10-31 12:13
PROVIDERS: ADMIT Internal Medicine Cardiovascular Disease; ATTEND Internal Medicine Cardiovascular Disease
DX: I48.91 Unspecified atrial fibrillation (principal); I48.92 Unspecified atrial flutter; I10 Essential (primary) hypertension; E03.9 Hypothyroidism, unspecified; E66.9 Obesity, unspecified; Z79.01 Long term (current) use of anticoagulants; Z79.899 Other long term (current) drug therapy
CPT/HCPCS: 76937; 85347; 93306; 93312; 93321; 93325; 93613; 93655; 93656; 93662; C1730; C1732; C1759; C1766; C1893; C1894; G0378; J1644; J2250; J2405; J2704; J3010; J3490; 93621

== ENCOUNTER → 2020-12-09 | Outpatient (CLI) | payer BC, MEDICARE, OTHER ==
[~2020-12-09] MED LIST changes: +COLC0.6C3 PO; +LISI-170 PO; -LISI40TA PO; +LISI40TA9 PO; +METO25TA91 PO; +REGADENOSON 0.4 MG/5 ML SYRINGE ONE
== END | disposition home or self-care (01) ==
LOC: CFH 11:25
PROVIDERS: ATTEND Internal Medicine Cardiovascular Disease
DX: I10 Essential (primary) hypertension (principal); I48.0 Paroxysmal atrial fibrillation
CPT/HCPCS: 78452; 93017; A9502; J2785

== ENCOUNTER → 2021-03-03 | Outpatient (CLI) | payer BC, MEDICARE, OTHER ==
[~2021-03-03] MED LIST changes: +DILT120C11 PO; -DRON400T PO; +DRON400T6 PO; +LEVO125T5 PO; -REGADENOSON 0.4 MG/5 ML SYRINGE ONE; +SPIR25TA5 PO
[2021-03-03 16:18] LABS: BASOPHILS % (AUTO) 1 % (0-1); EOSINOPHILS % (AUTO) 3 % (1-7); LYMPHOCYTES % (AUTO) 17 % (22-44); MD NO; MEAN CORPUSCULAR HEMOGLOBIN 31.2 pg (27.0-34.8); MEAN CORPUSCULAR HGB CONC 34.5 g/dL (32.4-35.8); MEAN PLATELET VOLUME 8.4 fL (7.4-10.4); MONOCYTES % (AUTO) 8 % (2-9); NEUTROPHILS % (AUTO) 72 % (42-75); PLATELET COUNT 229 x10^3/uL (130-400); RED BLOOD COUNT 4.69 x10^6/uL (3.82-5.3); RED CELL DISTRIBUTION WIDTH 14.4 % (9.6-15.2)
[2021-03-03 16:22] LABS: ALANINE AMINOTRANSFERASE 32 U/L (12-78); ALBUMIN 3.7 g/dL (3.4-5.0); ANION GAP 5 mmol/L (5-15); CALCIUM 8.8 mg/dL (8.5-10.1); CHLORIDE 108 mmol/L (98-107); CREATININE 0.93 mg/dL (0.55-1.02)
[2021-03-03 16:24] LABS: MICROSCOPIC INDICATED
[2021-03-03 16:26] LABS: ALKALINE PHOSPHATASE 93 U/L (45-117); BILIRUBIN,TOTAL 0.6 mg/dL (0.2-1.0); TOTAL PROTEIN 7.5 g/dL (6.4-8.2)
== END | disposition home or self-care (01) ==
LOC: STAR 14:51
PROVIDERS: ATTEND Student in an Organized Health Care Education/Training Program
DX: Z01.818 Encounter for other preprocedural examination (principal); N95.0 Postmenopausal bleeding; M51.34 Other intervertebral disc degeneration, thoracic region; I49.3 Ventricular premature depolarization; Z20.822 Contact with and (suspected) exposure to COVID-19
CPT/HCPCS: 36415; 71046; 80053; 81001; 84702; 85025; 87077; 87086; 93005; U0003; U0005; 87186

== ENCOUNTER 2021-03-09 11:32 | Day surgery (SDC) | payer BC, MEDICARE, OTHER ==
[~2021-03-09] VITALS: Ht 162.6 cm; Wt 102.5 kg
[2021-03-09 12:24] VITALS: BP 168/82
[2021-03-09] MEDS ORDERED: CHLORHEXIDINE 15 ML UDC PO ONE (12:30)
[2021-03-09] MEDS ORDERED: LACTATED RINGERS 1,000 ML IV SCH (12:30)
[2021-03-09] MEDS ORDERED: LIDOCAINE/PF 1%-EPI 1:200K, 30 ML ONE (14:07)
[2021-03-09] MEDS ORDERED: SILVER NITRATE STICK TP ONE (14:08)
[2021-03-09] MEDS ORDERED: MIDAZOLAM 1 MG/ML, 2ML ONE (14:16)
[2021-03-09] MEDS ORDERED: KETOROLAC 30 MG/1 ML ONE (15:00)
[2021-03-09] MEDS ORDERED: ONDANSETRON 2MG/ML, 2ML ONE (15:00)
[2021-03-09] MEDS ORDERED: DEXAMETHASONE 4 MG/ML, 1ML ONE (15:00)
[2021-03-09] MEDS ORDERED: SUCCINYLCHOLINE 20 MG/ML, 10ML ONE (15:00)
[2021-03-09] MEDS ORDERED: PROPOFOL 10 MG/ML, 20ML ONE (15:00)
[2021-03-09] MEDS ORDERED: ACETAMINOPHEN 650 MG/20.3 ML UDC ONE (15:55)
[2021-03-09] MEDS ORDERED: HYDROmorphone 1 MG/ML, 1ML INJ IV PRN (16:00)
[2021-03-09] MEDS ORDERED: MEPERIDINE/PF 25MG/0.5ML IVPush PRN (16:00)
[2021-03-09] MEDS ORDERED: ALBUTEROL SULFATE 2.5 MG/3 ML NPPB PRN (16:00)
[2021-03-09] MEDS ORDERED: LABETALOL 5MG/ML, 20ML IV PRN (16:00)
[2021-03-09] MEDS ORDERED: ONDANSETRON 2MG/ML, 2ML IVPush PRN (16:00)
[2021-03-09] MEDS ORDERED: ACETAMINOPHEN 325 MG TABLET PO PRN (16:00)
[2021-03-09] MEDS ORDERED: KETOROLAC 30 MG/1 ML IV PRN (16:00)
[2021-03-09] MEDS ORDERED: DIAZEPAM 5 MG/ML, 2ML IV PRN ×2 (16:00)
[2021-03-09] MEDS ORDERED: METOCLOPRAMIDE 5 MG/ML, 2ML IV PRN (16:00)
[2021-03-09] MEDS ORDERED: FENTANYL PF 100 MCG/2ML IV PRN (16:00)
[2021-03-09] MEDS ORDERED: OXYcodone 5 MG/5 ML ORAL.SOL UDC PO PRN (16:00)
[2021-03-09] MEDS ORDERED: PROMETHAZINE 25 MG/ML, 1ML IV PRN (16:00)
[2021-03-09] MEDS ORDERED: hydrALAzine 20 MG/ML, 1ML IV PRN (16:00)
[2021-03-10] MEDS ORDERED: DEXAMETHASONE 4 MG/ML, 1ML ONE (15:12)
[2021-03-10] MEDS ORDERED: SUCCINYLCHOLINE 20 MG/ML, 10ML ONE (15:12)
[2021-03-10] MEDS ORDERED: KETOROLAC 30 MG/1 ML ONE (15:12)
[2021-03-10] MEDS ORDERED: ONDANSETRON 2MG/ML, 2ML ONE (15:12)
[2021-03-10] MEDS ORDERED: PROPOFOL 10 MG/ML, 20ML ONE (15:12)
== END 2021-03-09 17:10 | disposition home or self-care (01) ==
LOC: OUT 11:32
PROVIDERS: ATTEND Student in an Organized Health Care Education/Training Program
DX: N95.0 Postmenopausal bleeding (principal); N84.0 Polyp of corpus uteri; I48.91 Unspecified atrial fibrillation; I10 Essential (primary) hypertension; E03.9 Hypothyroidism, unspecified; E66.01 Morbid (severe) obesity due to excess calories; Z68.39 Body mass index [BMI] 39.0-39.9, adult; Z79.01 Long term (current) use of anticoagulants; Z79.890 Hormone replacement therapy; Z79.899 Other long term (current) drug therapy; Z98.51 Tubal ligation status; Z98.890 Other specified postprocedural states; Z80.3 Family history of malignant neoplasm of breast
CPT/HCPCS: 36415; 58558; 86850; 86900; 88305; J0330; J1100; J1885; J2250; J2405; J2704; J7120